=== PATIENT | male | born 1975 | race African-American/Black ===

== ENCOUNTER 2021-05-09 18:46 | Emergency (ER) | payer SELFPAY ==
[2021-05-09] MEDS ORDERED: Aspirin 81 MG Tab.Chew PO ONE (20:38)
[2021-05-09 21:20] LABS: BLOOD UREA NITROGEN,BUN 18 mg/dL (7.0-18.0); CHLORIDE,CL 106 mmol/L (98-107); GLUCOSE RANDOM 107 mg/dL (74-106); POTASSIUM,K 3.7 mmol/L (3.5-5.1); SODIUM,NA 142 mmol/L (136-148)
--- NOTE | 2021-05-09 22:03 | CR ---
INDICATION: Chest pressure. TECHNIQUE: Chest radiograph 1 view COMPARISON: None FINDINGS: Cardiovascular and mediastinum: The heart silhouette is normal in size and morphology. The mediastinum is normal in appearance. Lungs and pleural spaces: Both lungs are unremarkable in appearance. No sign of pleural effusion seen. No pneumothorax is identified. Bones and soft tissues: No significant findings. IMPRESSION: 1. No acute cardiopulmonary disease is seen. Dictated by Leo De Los Santos MD @ 05/09/2021 10:02:[address] Leo De Los Santos @ May 09 2021 10:02PM
--- NOTE | 2021-05-09 22:30 | EDM.PDOC ---
ED HPI GENERAL MEDICAL PROBLEM - General Chief Complaint: Cardiovascular Problem Stated Complaint: FEVER Time Seen by Provider: 05/09/21 20:01 - History of Present Illness INITIAL COMMENTS - FREE TEXT/NARRATIVE: CHIEF COMPLAINT(S): "My blood pressure is high." HISTORY OF PRESENT ILLNESS: This is a 46-year-old man with a past medical history of hypertension who comes to the emergency department with a chief complaint of "my blood pressure is high." The patient states that today when he got back after walking and after showering he took his blood pressure and his systolic blood pressure was 174 so he decided to come to the emergency department. He denies any headache, blurry vision, chest pain, shortness of breath, lower extremity swelling, decreased urination, abdominal pain, nausea or vomiting. He states that he just got a new blood pressure cuff on approximately 3 days ago does not know if it is accurate. He states that he wanted to check his heart out because he has been experiencing right-sided chest heaviness intermittently for the last month not associated with any pain, diaphoresis, nausea or vomiting. He denies any exacerbating factors and it resolves on its own. REVIEW OF SYSTEMS: Constitutional: Denies fever, chills. Eyes: Denies eye pain Ears, Nose, Mouth, & Throat: Denies earache Cardiovascular: Positive for intermittent right-sided chest tightness denies chest pain Respiratory: Denies shortness of breath Gastrointestinal: Denies Nausea, vomiting, diarrhea, hematochezia. Genitourinary: Denies hematuria Skin:Denies a rash MSK: Denies joint pain Neurological: Denies blurred vision, headache, numbness, tingling, weakness Psychiatric: Denies depression PAST MEDICAL HISTORY: As per history of present illness and as reviewed below otherwise noncontributory. SURGICAL HISTORY: As per history of present illness and as reviewed below otherwise noncontributory. SOCIAL HISTORY: As per history of present illness and as reviewed below otherwise noncontributory. FAMILY HISTORY: As per history of present illness and as reviewed below otherwise noncontributory. EXAMINATION OF ORGAN SYSTEMS/BODY AREAS: Constitutional: Blood pressure is 170/94, heart rate 94, respiratory rate 16 with an oxygen saturation 9 9% on room air. Temperature 37.0 General: Young man who does not appear to be in acute distress Psychiatric: Appropriate mood and affect. Eyes: No scleral icterus or conjunctival erythema ENMT: Moist mucous membranes. No pharyngeal erythema Cardiovascular: Regular, rate, and rhythm. No gallops, murmurs, or rubs. Bilateral upper extremity pulses symmetric and intact. No peripheral edema. No JVD. Respiratory: Lungs clear to auscultation bilaterally. No wheezes, rales, or rhonchi. Gastrointestinal: Soft, non-tender, non-distended. Normoactive bowel sounds Genitourinary: No suprapubic tenderness Musculoskeletal: Normal range of motion. Skin: No lesions or abrasions. Neurological: Alert, GCS 15 strength and sensation grossly intact in upper and lower extremities bilaterally MEDICAL DECISION MAKING AND COURSE IN THE ED WITH INTERPRETATION/REVIEW OF DIAGNOSTIC STUDIES: This is a 46-year-old and with a past medical history of hypertension who comes to the emergency department with concern of increased blood pressure and intermittent right-sided chest pain for the last month. At this time the patient is hypertensive however I do not believe any urgent intervention is needed as the patient has no current complaints. We did obtain an EKG which did not reveal any signs of ischemia, however there was inferior T wave inversions. No Q waves. We will obtain a cardiac work-up including CBC, BMP, magnesium, troponin, and chest x-ray. We will provide the patient with aspirin by mouth. PERC Rule Age (>/=50): No (0) HR (>/=100): No (0) SaO2 on RA <95%: No (0) Unilateral Leg Swelling: No (0) Hemoptysis: No (0) Surgery/Trauma in last month requiring general anesthesia: No (0) Prior PE or DVT: : No (0) Hormone Use: No (0) PERC negative Since patient is PERC negative and pre-test probability <15%, there is no need for more intensive workup, <2% chance of PE Heart Score History: Slightly or Non-Suspicious (0) ECG: Non-specific repolarization (1) Age: 45-64 (1) Risk Factors: 1-2 (1) Initial Troponin: </= normal limit (0) Total Score: 3 Laboratory: CBC is unremarkable. BMP is unremarkable. Magnesium is normal. Troponin is negative. The radiological images were viewed by myself along with reading the report from the radiologist. Chest x-ray does not reveal any acute cardiopulmonary process. After labs and imaging I did discuss with patient that he had a normal work-up. I did discuss with him that he should follow-up with his primary care physician for further blood pressure management and possible referral to cardiology. This time the patient is low risk by heart score. He is to return for any new or worsening symptoms. He was amenable discharge at this time and had no further questions DISPOSITION: The patient was discharged home in stable condition. The patient will follow up with primary care physician within 1 to 3 days CONDITION: Fair PROCEDURES: None FINAL IMPRESSION(S)/DIAGNOSES: 1. Acute encounter for essential hypertension 2. Subacute intermittent right-sided chest tightness Eleazar London M.D. - Related Data Allergies Allergy/AdvReac Type Severity Reaction Status Date / Time Hydroxychloroqine Allergy Rash Uncoded 05/09/21 19:56 Home Meds: Home Meds amLODIPine [Norvasc] 5 mg PO DAILY 05/09/21 [History] Past Medical History Cardiovascular History: Reports: Hypertension - Infectious Disease History Infectious Disease History: Reports: Chicken Pox, Measles Social & Family History - Tobacco Use Tobacco Use Status *Q: Current Every Day Tobacco User Years of Tobacco use: 30 Packs/Tins Daily: 1 - Caffeine Use Caffeine Use: Reports: None - Recreational Drug Use Recreational Drug Use: No ED ROS GENERAL - Review of Systems Review Of Systems: See Below ED EXAM, GENERAL - Physical Exam Exam: See Below Course - Vital Signs Last Recorded V/S: Last Vital Signs Temp 37.0 C 05/09/21 19:57 Pulse 65 05/09/21 22:12 Resp 17 05/09/21 22:12 BP 174/90 H 05/09/21 22:12 Pulse Ox 96 05/09/21 22:12 - Orders/Labs/Meds Labs: Laboratory Tests 05/09/21 05/09/21 Range/Units 20:52 20:52 WBC 5.60 (4.0-11.0) K/uL RBC 4.44 L (4.50-5.90) M/uL Hgb 13.5 (13.0-17.0) g/dL Hct 41.3 (38.0-50.0) % MCV 93.0 (80.0-98.0) fL MCH 30.4 (27.0-32.0) pg MCHC 32.7 (31.0-37.0) g/dL RDW Std Deviation 42.2 (28.0-62.0) fl RDW Coeff of Willy 12 (11.0-15.0) % Plt Count 173 (150-400) K/uL MPV 10.10 (7.40-12.00) fL Neut % (Auto) 62.1 (48.0-80.0) % Lymph % (Auto) 21.1 (16.0-40.0) % [place] % (Auto) 10.2 (0.0-15.0) % Eos % (Auto) 6.1 (0.0-7.0) % Baso % (Auto) 0.5 (0.0-1.5) % Neut # (Auto) 3.5 (1.4-5.7) K/uL Lymph # (Auto) 1.2 (0.6-2.4) K/uL [place] # (Auto) 0.6 (0.0-0.8) K/uL Eos # (Auto) 0.3 (0.0-0.7) K/uL Baso # (Auto) 0.0 (0.0-0.1) K/uL Nucleated RBC % 0.0 /100WBC Nucleated RBCs # 0 K/uL Sodium 142 (136-148) mmol/L Potassium 3.7 (3.5-5.1) mmol/L Chloride 106 (98-107) mmol/L Carbon Dioxide 28.0 (21.0-32.0) mmol/L BUN 18 (7.0-18.0) mg/dL Creatinine 1.1 (0.8-1.3) mg/dL Est Cr Clr Drug Dosing TNP Estimated GFR (MDRD) > 60.0 ml/min Glucose 107 H (74-106) mg/dL Calcium 8.5 (8.5-10.1) mg/dL Magnesium 2.3 (1.8-2.4) mg/dL Troponin I < 0.050 (0.000-0.056) ng/mL Meds: Medications Discontinued Medications Generic Name Dose Route Start Last Admin Trade Name Freq PRN Reason Stop Dose Admin Aspirin 324 mg 05/09/21 20:38 05/09/21 20:43 Aspirin 81 Mg Tab.Chew PO 05/09/21 20:39 324 mg ONETIME ONE Administration Departure - Departure Time of Disposition: 22:29 Disposition: Home, Self-Care 01 Condition: Fair Clinical Impression: Hypertension Instructions: Hypertension, Adult, [id number] Referrals: Deanna COLIN [Primary Care Provider] - Forms: ED Department Discharge Additional Instructions: You were evaluated today on an emergent basis. As discussed I would like you to follow-up with your primary care doctor to adjust your blood pressure medication. As discussed it is important that you check your blood pressure in the morning prior to eating, caffeine use and after resting in a chair for approximately 15 minutes. It should be checked daily at the same time. As discussed her blood pressure does fluctuate throughout the day depending on her activity. If you have any headache, blurry vision, chest pain, decreased urination I would like you to return to the emergency department. If you have any worsening symptoms please also return to the emergency department. Take your medications as prescribed [facility] [address] [place] [address] [place] [address] The patient is informed of any results of their evaluation and diagnostic workup and all questions are answered. They are given discharge instructions and return precautions. The patient is stable for discharge. The patient states they understand and agree with the plan and that they will return if their symptoms get worse or if they have any new concerns. The following information is given to patients seen in the emergency department who are being discharged to home. This information is to outline your options for follow-up care. We provide all patients seen in our emergency department with a follow-up referral. The need for follow-up, as well as the timing and circumstances, are variable depending upon the specifics of your emergency department visit. If you don't have a primary care physician on staff, we will provide you with a referral. We always advise you to contact your personal physician following an emergency department visit to inform them of the circumstance of the visit and for follow-up with them and/or the need for any referrals to a consulting specialist. The emergency department will also refer you to a specialist when appropriate. This referral assures that you have the opportunity for follow-up care with a specialist. All of these measure are taken in an effort to provide you with optimal care, which includes your follow-up. Under all circumstances we always encourage you to contact your private physician who remains a resource for coordinating your care. When calling for follow-up care, please make the office aware that this follow-up is from your recent emergency room visit. If for any reason you are refused follow-up, please contact the [facility] Emergency Department at and asked to speak to the emergency department charge nurse. Sepsis Event Note (ED) - Evaluation Sepsis Screening Result: No Definite Risk
--- NOTE | 2021-05-09 23:37 | PCM.EKG ---
#1 Interpretation EKG Date: 05/09/21 Time: 20:55 Rhythm: NSR Rate (Beats/Min): 72 [place]: Normal P-Wave: Present QRS: Normal ST-T: Normal (T wave inversion inferior leads) QT: Normal Comparison: NA - No Prior EKG EKG Interpretation Comments: Sinus Rhythm with inferior T wave inversion. No signs of STEMI or ischemia
== END 2021-05-09 22:37 | disposition home or self-care (01) ==
LOC: MW.ED 18:46
DX: I10 Essential (primary) hypertension (principal); Z72.0 Tobacco use; Z88.8 Allergy status to other drugs, medicaments and biological substances
CPT/HCPCS: 36415; 71045; 80048; 83735; 84484; 85025; 93005; 99285; A9270